=== PATIENT | male | born 1935 | race Caucasian/White ===

== ENCOUNTER → 2016-06-21 | Day surgery (SDC) | payer MEDICARE ==
[~2016-06-21] VITALS: Ht 185.4 cm; Wt 98.0 kg
[~2016-06-21] MED LIST: AMLO10TA2 PO; ASPI81TA81; BUPIVACAINE HCL PF 0.5% 30 ML VIAL ONE; DEXT 5%-NACL 0.45% 1000 ML INJ 1,000 ML IV SCH; HYDR12.57 PO; IBUP800T23 PO; LACTATED RINGER'S 1000 ML INJ 1,000 ML ONE; LOSA100T PO; ONDANSETRON HCL 4 MG/2 ML VIAL IV PUSH ONE; POVIDONE IODINE 10% OINT 1 PACKET TOPICAL ONE; PRAV40TA2 PO; PROPOFOL 200 MG/20 ML AMP IV ONE; SODIUM CHLORIDE 0.9% FLUSH 5 ML FLUSH IVF PRN; SODIUM CHLORIDE 0.9% FLUSH 5 ML FLUSH IVF SCH; ceFAZolin 2 GM PREMIX 50 ML ONE; fentaNYL CITRATE 250 MCG/5 ML AMP ONE
--- NOTE | 2016-06-21 08:04 | HP.UPD ---
H&P Update Date: Jun 21, 2016 Note The Pre-Admit History and Physical Examination regarding the above named patient was reviewed (including, but not limited to, vital signs, medications, allergies, co-morbid conditions), and upon re-examination it is noted that: Indicated with "X" x - the patient's condition has not significantly changed since the last examination. [] - the patient's condition has changed since the last examination. Changes: Maryan Diego MD Jun 21, 2016 08:02
[2016-06-21 08:07] VITALS: BP 114/64; PULSE 80; RESP 16; TEMP 97.6; O2SAT 96
[2016-06-21 08:33] LABS: MEAN CELL VOLUME 98.7 FL (80.0-100.0); MEAN CORPUSCULAR HEMOGLOBIN 34.7 PG (27.0-34.0); MEAN CORPUSCULAR HGB CONC 35.2 % (32.0-36.0); PLATELET COUNT 383 TH/MM3 (150-450); RED BLOOD COUNT 4.05 MIL/MM3 (4.50-5.90); RED CELL DISTRIBUTION WIDTH 13.4 % (11.6-17.2); REVIEW FLAG FINAL; WHITE BLOOD COUNT 17.5 TH/MM3 (4.0-11.0)
--- NOTE | 2016-06-21 13:05 | HHI.PR ---
Immediate Post Op Note Procedure Date: Jun 21, 2016 Pre Op Diagnosis: (1) Left carpal tunnel syndrome (2) Dupuytren's contracture of left hand Post Op Diagnosis: (1) Dupuytren's contracture of left hand (2) Left carpal tunnel syndrome Surgeon: Maryan Diego Corncob Pipes Assembler(s): None Procedure: Open release of the left carpal tunnel. Release Dupuytren's contracture of the left palm, third and fourth fingers. Specimen(s) removed: Dupuytren's fascia. Anesthesia: General Drains: None Tourniquet time (min at mmHg) 109 minutes at 220 mm Hg. Patient to: PACU Patient Condition: Good Date/Time of Procedure: SEE SURGICAL CARE RECORD Maryan Diego MD Jun 21, 2016 13:05
[2016-06-21 14:15] VITALS: BP 120/72; PULSE 78; RESP 16; TEMP 98; O2SAT 95
--- NOTE | 2016-06-22 15:24 | EKG ---
Date Performed: 06/21/2016 Time Performed: 08:17:28 PTAGE: 80 years EKG: Sinus rhythm with 1st degree A-V block. 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 There is some loss of R force in lead V3, but this may be positional. DOCTOR: Otis Solis Interpretating Date/Time 06/22/2016 15:22:50
--- NOTE | 2016-06-22 17:16 | MP ---
cc: ANDREW CUEVA M.D. DATE OF SURGERY: 06/21/2016 PREOPERATIVE DIAGNOSIS: 1. Left carpal tunnel syndrome. 2. Dupuytren's contracture of the left palm third and fourth fingers. POSTOPERATIVE DIAGNOSIS: 1. Left carpal tunnel syndrome. 2. Dupuytren's contracture of the left palm third and fourth fingers. OPERATIVE PROCEDURE PERFORMED: 1. Open release of the left carpal tunnel. 2. Release Dupuytren's contracture of the left palm, the third and fourth fingers. SURGEON: Andrew Cueva M.D. ANESTHESIA: General. INDICATIONS FOR THE PROCEDURE: 80-year-old male with Dupuytren's contracture which has been quite severe and has been operated on before on that hand. In addition, a very severe carpal tunnel syndrome. FINDINGS: At the completion of the procedure, the transverse carpal ligament was completely divided. There was a significant amount of pressure on the nerve. In addition, the contractures were released to the third and fourth fingers. There was excellent perfusion once the tourniquet was released. TOURNIQUET TIME: Tourniquet time was 109 minutes at 220 mmHg. DESCRIPTION OF THE PROCEDURE IN DETAIL: The patient was seen preoperatively where the sites and side were identified and marked. The patient was then taken to the operating room and placed in a supine position. His identity was checked against the arm band and the consent form site and side confirmed, time-out called prior to beginning the procedure. The areas to be incised were outlined with a marking pen as a longitudinal incision in the proximal palm just to the ulnar side of the midline approximately 3 cm in length. In addition, zigzag incisions were designed in the third and fourth fingers as appropriate. The arm was exsanguinated and the tourniquet inflated to 220 mmHg. Bupivacaine 0.5% plain used to make a median nerve block and an ulnar nerve block,. A 15 blade was then used make the incision in the proximal palm down through skin down to the subcutaneous tissue down through the palmar fascia. Distally a small hole was poked in the palmar fascia and using the ulnar artery as a guide, Guyon's canal was released. The ulnar nerve and artery were retracted ulnarly. The median nerve was retracted medially and using the ring finger as a guide, the transverse carpal ligament was divided. Once the forearm fascia was reached, the scissor was kept in a slightly open position and using a push technique, divided for approximately 2-3 cm into the distal forearm. The median nerve was compressed at the distal end of the transverse carpal ligament. There was evidence of an hourglass deformity as well as hyperemia. The nerve was then carefully from the roof of the tunnel and freed up. The wound was then copiously irrigated with saline and closed with a running 4-0 nylon suture. Attention was then turned to the fourth finger where a zigzag incision was made on the proximal finger all the way to the proximal interphalangeal joint and dissection was continued from proximal to distal. Dissection was quite difficult as there was a significant amount of scarring and Dupuytren's fascia combined the neurovascular bundles were identified and protected while the fascia was removed. The check rein ligaments were also divided and almost full extension was reached with the finger at the proximal interphalangeal joint. Attention was then turned to distal end of the third finger where incision was made over the distal interphalangeal joint as a mid lateral incision on the ulnar side down through skin down to the subcutaneous tissue. Under loupe magnification, the Dupuytren's band was identified and then it was removed. This allowed almost full extension of the distal interphalangeal joint. The tourniquet was then released after 109 minutes of tourniquet time. There was excellent and immediate perfusion to all the fingers. Pressure was applied. After several minutes, the wounds were copiously irrigated with saline and closed with interrupted and running 5-0 nylon suture. Dressing was applied using povidone-iodine ointment, Adaptic, Telfa, fluffy gauze and hand wrap. The patient was then taken from the operating room to the recovery room in satisfactory condition having tolerated the procedure well. Postoperative instructions include keeping the arm elevated, keeping the area clean and dry and returning in several days for follow up. The patient was given a prescription for ibuprofen 800 milligrams every 8 hours as needed for pain. MD EFFIE Dixon/JESSICA /1:08 PM /4:58 PM MTDCarol Ann
== END | disposition home or self-care (01) ==
LOC: PHSDC 07:18
PROVIDERS: ATTEND Specialist
DX: G56.02 Carpal tunnel syndrome, left upper limb (principal); M72.0 Palmar fascial fibromatosis [Dupuytren]; R94.31 Abnormal electrocardiogram [ECG] [EKG]
CPT/HCPCS: 01810; 26123; 26125; 36415; 64721; 85027; 88304; 93005; J0690; J2405; J3010; J7120

== ENCOUNTER → 2016-07-08 | Day surgery (SDC) | payer MEDICARE ==
[~2016-07-08] VITALS: Ht 188 cm; Wt 97.5 kg
[~2016-07-08] MED LIST changes: +FAMOTIDINE 20 MG/2 ML VIAL ONE; +MIDAZOLAM HCL 2 MG/2 ML VIAL ONE; +POVIDONE IODINE 10% OINT 1 PACKET ONE; -POVIDONE IODINE 10% OINT 1 PACKET TOPICAL ONE; -fentaNYL CITRATE 250 MCG/5 ML AMP ONE
[2016-07-08 07:41] VITALS: BP 126/76; PULSE 69; RESP 20; TEMP 97.8; O2SAT 98
--- NOTE | 2016-07-08 08:00 | HP.UPD ---
H&P Update Date: July 08, 2016 Note The Pre-Admit History and Physical Examination regarding the above named patient was reviewed (including, but not limited to, vital signs, medications, allergies, co-morbid conditions), and upon re-examination it is noted that: Indicated with "X" x - the patient's condition has not significantly changed since the last examination. [] - the patient's condition has changed since the last examination. Changes: Maryan Diego MD July 08, 2016 07:59
--- NOTE | 2016-07-08 10:11 | HHI.PR ---
Immediate Post Op Note Procedure Date: July 08, 2016 Pre Op Diagnosis: (1) Right carpal tunnel syndrome Post Op Diagnosis: (1) Right carpal tunnel syndrome Surgeon: Maryan Diego Mushroom Grower(s): None Procedure: Open release of the right carpal tunnel. Anesthesia: General Drains: None Tourniquet time (min at mmHg) 22 minutes at 220 mm Hg. Patient to: PACU Patient Condition: Good Date/Time of Procedure: SEE SURGICAL CARE RECORD Maryan Diego MD July 08, 2016 10:11
[2016-07-08 11:20] VITALS: BP 126/76; PULSE 76; RESP 16; TEMP 97.9; O2SAT 94
--- NOTE | 2016-07-09 09:48 | MP ---
cc: ANDREW CUEVA M.D. DATE OF SURGERY: 07/08/2016 PREOPERATIVE DIAGNOSIS Right carpal tunnel syndrome. POSTOPERATIVE DIAGNOSIS Right carpal tunnel syndrome. PROCEDURE Open release of the right carpal tunnel. ANESTHESIA General. SURGEON Dr. Cueva INDICATION This is a 80-year-old male with right carpal tunnel syndrome for release. FINDINGS At the completion of the procedure the transverse carpal ligament had been completely divided but the tunnel was tight. TOURNIQUET TIME 22 minutes at 220 mmHg. DETAILS OF PROCEDURE The patient was seen preoperatively where the site and side were identified and marked. The patient was then taken to the operating room, placed in a supine position. His identity was checked against the arm band and the consent form, site and side confirmed. A timeout was called prior to beginning the procedure. The right upper extremity was prepped with Hibiclens and draped in the usual sterile fashion. The area to be incised was outlined with a marking pen as a longitudinal incision just to the ulnar side of the midline in the palm. The arm was then anesthetized with bupivacaine 0.5% plain as a median nerve block. The arm was then exsanguinated and the tourniquet inflated to 220 mmHg. A #15 blade was used to make the incision down through the skin down through the subcutaneous tissue down to the palmar fascia. Small vessels were cauterized with bipolar cautery. Under loupe magnification distally a small hole was poked through the palmar fascia and using the ulnar artery as a guide the Guyon's canal was released. The ulnar artery and nerve were retracted ulnarly. The median nerve was retracted medially and using the flexor tendon to the ring finger as a guide the transverse carpal ligament was divided. Once the forearm fascia was reached the scissor was kept in a slightly open position and using the push technique the forearm fascia was released for 2-3 cm into the distal forearm. The median nerve was then carefully from the roof of the carpal tunnel. The motor branch was identified and protected. Once the adhesions to the nerve were released the wound was copiously irrigated with saline, injected with bupivacaine 0.5% plain and closed with 4-0 nylon suture material. Once the wound was closed pressure was applied and the tourniquet was released after 22 minutes of tourniquet time. After several minutes there was no evidence of any oozing and a dressing was applied using povidone-iodine ointment, Adaptic, Telfa, 4x4s and hand wrap. The patient was then taken from the operating room to the recovery room in satisfactory condition having tolerated the procedure well. Postoperative instructions include keeping the arm elevated, keeping it clean and dry and returning next week for follow-up. Instructions were given to the patient to change his own dressing this week. MD EFFIE Dixon/SLAVA /10:15 AM /9:40 AM
== END | disposition home or self-care (01) ==
LOC: PHSDC 07:04
PROVIDERS: ATTEND Specialist
DX: G56.01 Carpal tunnel syndrome, right upper limb (principal); J44.9 Chronic obstructive pulmonary disease, unspecified; E78.5 Hyperlipidemia, unspecified; F17.210 Nicotine dependence, cigarettes, uncomplicated
CPT/HCPCS: 01810; 64721; J0690; J2250; J2405; J3010; J7120